=== PATIENT | female | born 1990 | race African-American/Black ===

== ENCOUNTER 2016-06-16 22:55 | Emergency (ER) | payer SELFPAY ==
--- NOTE | 2016-06-17 02:22 | ER Document Report ---
ED GI/ - General Chief Complaint: Vag Bleeding, +preg <12wks Stated Complaint: POSSIBLE VAGINAL BLEEDING Time seen by provider: 02:15 Notes: Patient is a 25-year-old female, at 9 weeks gestation by last menstrual period, the comes emergency department for chief complaint of vaginal spotting. Patient denies any pain, she denies any fever, denies any dizziness. Patient is on vitamins, denies any past medical history. Patient had a positive home test, was planning on following up with [facility] in [place] when they move coming up soon. TRAVEL OUTSIDE OF THE [place] IN LAST 30 DAYS: No - Related Data Allergies/Adverse Reactions: No Known Allergies Allergy (Unverified 06/16/16 23:22) Past Medical History - General Information source: Patient - Social History Smoking Status: Never Smoker Chew tobacco use (# tins/day): No Frequency of alcohol use: None Drug Abuse: None Lives with: Family Family History: Reviewed & Not Pertinent Patient has suicidal ideation: No Patient has homicidal ideation: No - Medical History Medical History: Negative Renal/ Medical History: Denies: Hx Peritoneal Dialysis Surgical Hx: Negative - Immunizations Immunizations up to date: Yes Hx Diphtheria, Pertussis, Tetanus Vaccination: Yes Review of Systems - Review of Systems Constitutional: No symptoms reported EENT: No symptoms reported Cardiovascular: No symptoms reported Respiratory: No symptoms reported Gastrointestinal: No symptoms reported Genitourinary: No symptoms reported Female Genitourinary: See HPI Musculoskeletal: No symptoms reported Skin: No symptoms reported Hematologic/Lymphatic: No symptoms reported Neurological/Psychological: No symptoms reported Physical Exam - Vital signs Vitals: Temp Pulse Resp BP Pulse Ox 98.5 F 84 16 100/62 100 06/16/16 22:58 06/16/16 22:58 06/16/16 22:58 06/16/16 22:58 06/16/16 22:58 Interpretation: Normal - General General appearance: Appears well, Alert In distress: None - HEENT Head: Normocephalic, Atraumatic Eyes: Normal Extraocular movements intact: Yes Eyelashes: Normal Pupils: PERRL Mouth/Lips: Normal Mucous membranes: Normal Pharynx: Normal Neck: Normal - Respiratory Respiratory status: No respiratory distress Chest status: Nontender Breath sounds: Normal Chest palpation: Normal - Cardiovascular Rhythm: Regular Heart sounds: Normal auscultation Murmur: No - Abdominal Inspection: Normal Distension: No distension Bowel sounds: Normal Tenderness: Nontender. No: Tender, Guarding Organomegaly: No organomegaly - Back Back: Normal, Nontender - Extremities General upper extremity: Normal inspection, Nontender, Normal color, Normal ROM , Normal temperature General lower extremity: Normal inspection, Nontender, Normal color, Normal ROM , Normal temperature, Normal weight bearing. No: Ever's sign - Neurological Neuro grossly intact: Yes Cognition: Normal Orientation: AAOx4 [place] Coma Scale Eye Opening: Spontaneous [place] Coma Scale Verbal: Oriented [place] Coma Scale Motor: Obeys Commands Aaliyah Coma Scale Total: 15 Speech: Normal Motor strength normal: LUE, RUE, LLE, RLE Sensory: Normal - Psychological Associated symptoms: Normal affect, Normal mood - Skin Skin Temperature: Warm Skin Moisture: Dry Skin Color: Normal Course - Re-evaluation Re-evalutation: Patient with a nontender abdomen on exam, well-appearing, no hypotension, tachycardia, or fever. CBC unremarkable, hCG appropriately elevated, urinalysis unremarkable, RhoGAM is not indicated. Ultrasound showing living intrauterine with no abnormalities. Patient provided with a copy of this report, discussed findings, discussed recommendations and precautions, discussed follow-up and return precautions. Patient and significant other state understanding and agreement. - Vital Signs Vital signs: Temp Pulse Resp BP Pulse Ox 98.5 F 66 16 104/53 L 99 06/16/16 22:58 06/17/16 05:49 06/16/16 22:58 06/17/16 05:49 06/17/16 05:49 - Laboratory Result Diagrams: 06/17/16 02:39 Laboratory results interpreted by me: 06/17/16 06/17/16 02:39 02:39 RDW 15.5 H Beta HCG, Quant [id number] H Discharge - Discharge Clinical Impression: Vaginal bleeding in patient at less than 20 weeks gestation Condition: Stable Disposition: HOME, SELF-CARE Additional Instructions: Ultrasound shows a living in the uterus with no abnormalities. Laboratory workup shows no abnormalities, your blood type is A+ Follow up with [facility], performed precautions because of the vaginal bleeding, no lifting of heavy objects, no significant exercise, no sexual intercourse until cleared to do so by [facility]. Return to emergency department for any concerning symptoms.
[2016-06-17 02:53] LABS: ABSOLUTE LYMPHOCYTES (AUTO) 2.7 10^3/uL (0.5-4.7); ABSOLUTE MONOCYTES (AUTO) 0.4 10^3/uL (0.1-1.4); ABSOLUTE NEUT (AUTO) 4.9 10^3/uL (1.7-8.2); BASOPHILS % (AUTO) 0.3 % (0-2); EOSINOPHILS % (AUTO) 0.5 % (0-6); HEMATOCRIT 36.3 % (36.0-47.0); HEMOGLOBIN 12.3 g/dL (12.0-15.5); HGB HCT DIFFERENCE 0.6; MEAN CORPUSCULAR HEMOGLOBIN 27.4 pg (27.0-33.4); MEAN CORPUSCULAR HGB CONC 33.8 g/dL (32.0-36.0); MEAN CORPUSCULAR VOLUME 81 fl (80-97); MONOCYTES % (AUTO) 5.5 % (3-13); RED BLOOD COUNT 4.49 10^6/uL (3.72-5.28); RED CELL DISTRIBUTION WIDTH 15.5 % (11.5-14.0); SEGMENTED NEUTROPHILS % (AUTO) 60.7 % (42-78); WHITE BLOOD COUNT 8.1 10^3/uL (4.0-10.5)
[2016-06-17 03:00] LABS: APPEARANCE,URINE CLEAR; BILIRUBIN,URINE NEGATIVE (NEGATIVE); GLUCOSE, URINE NEGATIVE (NEGATIVE); KETONES,URINE NEGATIVE (NEGATIVE); LEUKOCYTE ESTERASE,URINE NEGATIVE (NEGATIVE); NITRITE,URINE NEGATIVE (NEGATIVE); PROTEIN,URINE NEGATIVE (NEGATIVE); URINE SPECIFIC GRAVITY 1.023; UROBILINOGEN,URINE NEGATIVE mg/dL (<2.0)
[2016-06-17 05:51] VITALS: BP 104/53
== END 2016-06-17 05:51 | disposition home or self-care (01) ==
LOC: ER 22:55
DX: O46.91 Antepartum hemorrhage, unspecified, first trimester (principal); Z3A.09 9 weeks gestation of pregnancy
CPT/HCPCS: 36415; 76801; 81001; 84702; 85025; 86900; 86901; 93976; 99284